=== PATIENT | male | born 1990 | race Caucasian/White ===

== ENCOUNTER 2016-10-15 16:01 | Emergency (ER) | payer MEDICAID, OTHER ==
[~2016-10-15] VITALS: Ht 170.2 cm; Wt 68.2 kg
[~2016-10-15 16:01] MED LIST: IMI100 PO; LAMO25TA PO; LAMO25TA2 PO; QUET100T PO; Trazodone PO
[2016-10-15 16:25] VITALS: BP 139/96; PULSE 68; RESP 26; O2SAT 97
--- NOTE | 2016-10-15 18:24 | ED.REPORT ---
HPI-Psychiatric Illness Date of Service Oct 15, 2016 ED Provider: Angelo Parekh DO Patient is a 26 year old male with a history of bipolar disorder, schizophrenia and PTSD who presents to the ED via [facility] due to a mental health evaluation. 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 He was unable to answer where he was coming from. Patient denies homicidal or suicidal ideations. He states that he would like help. Per [facility], the patient was sent here because they thought he might be more of a psych patient and above their level of treatment Nursing Notes Stated Complaint: MENTAL HEALTH EVAL Chief Complaint: Psychiatric Complaint Nursing Notes Reviewed: Yes Allergies: Coded Allergies: No Known Allergies (Unverified Allergy, Unknown, 05/21/14) Scheduled ([Trazodone]) 50 MG TABLET 50 MG PO HSPMR Quetiapine Fumarate (Seroquel) 100 Mg Tablet 200 MG PO PM Quetiapine Fumarate (Seroquel) 100 Mg Tablet 200 MG PO AM Sumatriptan (Imitrex) 100 Mg Tablet 100 MG PO onset migraine General Time Seen by MD: 18:02 Chief Complaint Other (mental health eval) Hx Obtained From: Patient Arrived By: Police Onset Occurred: Onset unknown Recent Healthcare: No recent doctor visit, No recent hospitalization Similar Sx Previous: Yes Risk-Psychiatric Illness Suicide Risk Stratification Suicide Risk Factors - Adult: : Prior psych admission RF Statements: Risk factors reviewed Past Medical History Past Medical History schizophrenia PTSD biploar Past Surgical History unknown Smoking History Current Every Day Smoker Ambulatory Status Independent Review of Systems Unable to Obtain ROS Patient condition, Mental status Psychiatric: Denies: Homicidal ideation, Suicidal ideation Complete sys rev & neg: except as marked. Physical Exam Initial Vital Signs Vital Signs (First) Date Time Temp Pulse Resp B/P Pulse Ox O2 Delivery O2 Flow Rate FiO2 10/15/16 16:25 36.7 68 26 139/96 97 Room Air Initial VS: Reviewed General/Constitutional: Awake, Alert, No acute distress Behavior: Positive: Uncooperative, Withdrawn Appearance / Presentation: Positive: Hygiene poor disheveled Neurologic: Oriented X3, No motor deficits, No sensory deficits Psychiatric: Not suicidal, Not homicidal avoids eye contact slow to respond but follow commands Head / Eyes: Atraumatic, Normocephalic, PERRL, EOMI Respiratory / Chest: Atraumatic, Breath sounds NL, Breath sounds = bilat, No respiratory distress Cardiovascular: Heart rate NL, Regular rhythm, Heart sounds NL Skin: Atraumatic, Color NL, No rash, Warm, Dry Lower Extremity / Pelvis / MS: Atraumatic, Full range of motion Interpretation & Diagnostics Lab Results Interpretation Result Diagram: 10/15/16 1845 10/15/16 1845 Test 10/15/16 18:45 10/15/16 19:00 White Blood Count 7.4th/mm3 (3.8-10.1) Red Blood Count 5.31mil/mm3 (4.40-5.80) Hemoglobin 15.2g/dL (13.8-17.2) Hematocrit 44.5% (41.0-50.0) Mean Corpuscular Volume 83.8fL (81-100) Mean Corpuscular Hemoglobin 28.6pg (27.0-35.0) Mean Corpuscular Hemoglobin Concent 34.2% (32.0-37.0) Red Cell Distribution Width 12.9% (12.3-15.4) Platelet Count 238bil/L (150-400) Neutrophils (%) (Auto) 62.8% (40-74) Lymphocytes (%) (Auto) 30.0% (14-46) Monocytes (%) (Auto) 6.4% (4-12) Eosinophils (%) (Auto) 0.4% (0-5) Basophils (%) (Auto) 0.3% (0-3) Sodium Level 146mEq/L (134-144) Potassium Level 3.8mEq/L (3.5-5.2) Chloride Level 105mEq/L (97-108) Carbon Dioxide Level 25mmol/L (18-29) Blood Urea Nitrogen 10mg/dL (6-20) Creatinine 0.88mg/dL (0.76-1.27) Estimat Glomerular Filtration Rate 110mL/min (>59) Glucose Level 95mg/dL (60-99) Calcium Level 10.1mg/dL (8.5-10.1) Total Bilirubin 0.4mg/dL (0.0-1.2) Aspartate Amino Transf (AST/SGOT) 25U/L (0-50) Alanine Aminotransferase (ALT/SGPT) 19U/L (0-44) Alkaline Phosphatase 74U/L (25-150) Total Protein 7.4g/dL (6.4-8.4) Albumin 4.8g/dL (3.4-5.0) Thyroid Stimulating Hormone (TSH) 1.340uIU/mL (0.450-4.500) Alcohols < 10mg/dL (0-10) Urine Opiates Screen Negative Urine Methadone Screen Negative Urine Barbiturates Screen Negative Urine Amphetamines Screen Negative Urine Benzodiazepines Screen Negative Urine Cocaine Metabolite Screen Negative Urine Cannabinoids Screen Negative Re-Eval/Medical Decision Med Decision/Clinical Course The PAC team was contacted. He felt that Blanco needed to be admitted. Cristian the DCR was was called in and evaluated Blanco. He has placed him on a hold. He is on a single bed certification. As it were there are no beds available. Blanco is detained for emergency department. He is out of the closed room. He is resting comfortably. He was given oral Zyprexa. Case signed out to the shift manager doctor Suman. Anticipate psychiatric and social media campaign manager involvement in the morning. 26-year-old male who was initially evaluated by Dr. Angelo soriano for bizarre behavior while intoxicated. His care was turned over to me at change of shift. He slept the shift through and is now being turned over to Dr. GARCIA. Carlos Garcia MD: Assumed care of this patient at shift change. Reviewed hx which include PTSD, Bipolar, and Schizophrenia. He is detained by [facility]. Plan for further evaluation by social work and psychiatry this morning. H His alcohol and urine tox screen were both negative. CMP and CBC are unremarkable. Not consistent with previous documentation that he was intoxicated. He was noted to be bradycardic while sleeping and an EKG was obtained. EKG reveals: sinus bradycardia with a rate of 45 L axis deviation [address] elevation in V3 suggestive of J point elevation no prior for comparison Patient remained stable and in no apparent distress. He is refusing to engage in discussion with myself or social media campaign manager. We are awaiting placement at psychiatric facility however no beds have yet become available. Patient will be signed out to Dr. Enciso. Re-Evaluation/Progress #1: Time of Eval: 18:21 Re-Evaluation/Progress Note: Face to face with patient who is in a secured room with the door open. He states that he would like help. Re-Evaluation/Progress #2: Time of Eval: 20:29 Re-Evaluation/Progress Note: PACT team examined patient and recommends hospitalization. Counseled Regarding: Diagnosis, Lab results, Need for admission Discharge & Departure Shift Change Sign-Out Patient Care Transferred: Yes Discussed Complaint(s): Yes Laboratory Evaluation: Back, reviewed by me Response to Therapy: Improved Impression: Primary Impression: Acute situational disturbance Additional Impression: Psychosis Psychosis type: unspecified psychosis type Qualified Code: F29 - Unspecified psychosis not due to a substance or known physiological condition )( Condition at Discharge: No suicidal ideation, No homicidal ideation Disposition: ADMITTED TO HOSPITAL Discharge Condition All VS Reviewed: Yes Condition: Stable Referrals: Cecilio Vasquez DO (PCP) Care Transferred to: Dr. Suman Cartwright Attestation Portions of this note were transcribed by Cortney Figueroa. I, Dr. Parekh personally performed the history, physical exam and medical decision-making; I reviewed and confirmed the accuracy of the information in the transcribed note. Signed by: Chay Philippe, 10/16/16 and 0300 copies to: Cecilio Vasquez Todd P DO Oct 15, 2016 18:24 Betsy Figueroa Oct 15, 2016 18:41 Alan Will MD Oct 16, 2016 06:51 JENNIE STONE Oct 16, 2016 07:25 Carlos Garcia MD Oct 16, 2016 12:02 JENNIE STONE Oct 16, 2016 07:25 Carlos Garcia MD Oct 16, 2016 12:02
[2016-10-15 19:14] LABS: BASOPHILS % (AUTO) 0.3 % (0-3); EOSINOPHILS % (AUTO) 0.4 % (0-5); MONOCYTES % (AUTO) 6.4 % (4-12); Mean Corpuscular Hemoglobin 28.6 pg (27.0-35.0); Mean Corpuscular Volume 83.8 fL (81-100); NEUTROPHILS % (AUTO) 62.8 % (40-74); Platelet Count 238 bil/L (150-400)
[2016-10-15] MEDS ORDERED: OLANZapine Zydis ODT 5 mg Tablet PO ONE (22:45)
[2016-10-16 06:18] VITALS: BP 118/80; PULSE 40; RESP 16; O2SAT 97
[2016-10-16 09:05] VITALS: PULSE 52
--- NOTE | 2016-10-16 16:08 | PCM.EDPN ---
ED Note Date of Service Oct 16, 2016 I assumed care of this patient from Dr. hayley chen at approximately noon today. [facility] has seen and obtained this patient and lacking another outpatient location put him he is single but certified to our facility. I spoke with Dr. Diallo who said he would be happy to see the patient on the floor. It was not clear who would be the attending and so I have left a message stating that [facility] hospital policy is that he can be the attending without any additional physician involvement as long as the patient is stable, which the patient appears to be. He will be admitted to a regular hospital bed awaiting more definitive disposition. Assessment: Psychosis NOS, history of drug abuse-currently no drugs in system. Plan: Admit as above. Yifan Enciso MD Oct 16, 2016 16:08
[2016-10-16] MEDS ORDERED: Alum-Mag Hydrox-Simeth 30 mL Suspension PO PRN ×2 (16:10→16:30)
[2016-10-16] MEDS ORDERED: Magnesium Hydroxide 10 mL Oral Concentration PO PRN ×2 (16:10→16:30)
[2016-10-16] MEDS ORDERED: Benzocaine-Menthol Lozenge 2/Pkg MT PRN (16:10)
[2016-10-16] MEDS ORDERED: SUMATRIPTAN 100 MG PO SCH (16:30)
[2016-10-16] MEDS ORDERED: TRAZODONE 50 MG PO SCH (16:30)
[2016-10-16] MEDS ORDERED: LORazepam 1 mg Tablet PO PRN (16:30)
[2016-10-16] MEDS ORDERED: Benzocaine-Menthol Lozenge 2/Pkg PO PRN (16:30)
[2016-10-16] MEDS ORDERED: lamoTRIgine 25 mg Tablet PO SCH (16:35)
[2016-10-16 17:50] VITALS: BP 138/92; PULSE 53; RESP 14; O2SAT 98
== END 2016-10-16 17:05 | disposition other institution (70) ==
LOC: SED 16:01
DX: F43.0 Acute stress reaction (principal); F29 Unspecified psychosis not due to a substance or known physiological condition; F20.9 Schizophrenia, unspecified; F31.9 Bipolar disorder, unspecified; F17.200 Nicotine dependence, unspecified, uncomplicated
CPT/HCPCS: 36415; 80053; 82075; 84443; 85025; 93005; 99285; G0480